=== PATIENT | female | born 1975 | race Caucasian/White ===

== ENCOUNTER 2019-03-15 12:59 | Outpatient (CLI) | payer OTHER | END 2019-03-15 23:59 | disposition home or self-care (01) | LOC: CFH 12:59 | PROVIDERS: ATTEND Obstetrics & Gynecology | DX: Z02.9 Encounter for administrative examinations, unspecified (principal) ==

== ENCOUNTER 2019-03-22 07:24 | Outpatient (CLI) | payer OTHER | END 2019-03-22 23:59 | disposition home or self-care (01) | LOC: CFH 07:24 | PROVIDERS: ATTEND Obstetrics & Gynecology | DX: R92.8 Other abnormal and inconclusive findings on diagnostic imaging of breast (principal) | CPT/HCPCS: 76641 ==

== ENCOUNTER 2019-10-25 12:52 | Outpatient (CLI) | payer OTHER | END 2019-10-25 23:59 | disposition home or self-care (01) | LOC: CARD 12:52 | PROVIDERS: ATTEND Internal Medicine Cardiovascular Disease | DX: R06.02 Shortness of breath (principal) | CPT/HCPCS: 94060; 94726; 94729 ==